=== PATIENT | female | born 1950 | race Caucasian/White ===

== ENCOUNTER → 2016-12-08 | Outpatient (CLI) | payer OTHER ==
[2016-12-08 13:47] LABS: BLOOD UREA NITROGEN 15 mg/dl (7-18); BUN/CREATININE RATIO 17.5 (10-20); CARBON DIOXIDE 29 mmol/L (21-32); CHLORIDE 110 mmol/L (98-107); CREATININE 0.88 mg/dl (0.60-1.20); GLUCOSE 99 mg/dl (70-99); POTASSIUM 4.3 mmol/L (3.5-5.1); SODIUM 144 mmol/L (136-145)
[2016-12-08 13:50] LABS: CHOLESTEROL 185 mg/dl (0-200); CHOLESTEROL/HDL RATIO 3.4; HDL CHOLESTEROL 55 mg/dl; LDL CHOLESTEROL CALCULATED 109 mg/dl; TRIGLYCERIDES 107 mg/dl (0-150); VERY LOW DENSITY LIPOPROT CALC 21 mg/dl
== END | disposition home or self-care (01) ==
LOC: C.LABPBG 09:33
PROVIDERS: ATTEND Physician Assistant
DX: Z00.00 Encounter for general adult medical examination without abnormal findings (principal); E78.5 Hyperlipidemia, unspecified

== ENCOUNTER → 2017-03-01 | Outpatient (CLI) | payer OTHER | END | disposition home or self-care (01) | LOC: C.PAPS 09:23 | PROVIDERS: ATTEND Physician Assistant | DX: Z00.00 Encounter for general adult medical examination without abnormal findings (principal) ==

== ENCOUNTER → 2017-03-01 | Outpatient (CLI) | payer OTHER ==
[2017-03-01 17:51] LABS: URINE APPEARANCE TURBID (CLEAR); URINE BILIRUBIN NEG (NEG); URINE COLOR DK YELLOW; URINE EPITHELIAL CELL AUTO >30 /lpf (0-5); URINE NITRITE NEG (NEG); URINE SPECIFIC GRAVITY 1.028 (1.000-1.030); UROBILINOGEN NEG (NEG); ZZUR CULT IF INDIC CLEAN CATCH NO
[2017-03-01 17:57] LABS: MANUAL MICROSCOPIC REQUIRED? NO; REVIEW REQ? YES
== END | disposition home or self-care (01) ==
LOC: C.LABSPEC 15:24
PROVIDERS: ATTEND Physician Assistant
DX: R39.9 Unspecified symptoms and signs involving the genitourinary system (principal); Z00.00 Encounter for general adult medical examination without abnormal findings

== ENCOUNTER → 2017-10-03 | Outpatient (CLI) | payer OTHER | END | disposition home or self-care (01) | LOC: C.LABPBG 13:54 | PROVIDERS: ATTEND Physician Assistant | DX: Z11.59 Encounter for screening for other viral diseases (principal) ==

== ENCOUNTER → 2017-10-31 | Outpatient (CLI) | payer OTHER ==
--- NOTE | 2017-10-31 13:00 | DIAGNOSTIC IMAGING REPORT ---
ABDOMEN NO IV/ORAL CONT (CT) HISTORY: 66 years-old Female R19.00 Palpable abdominal massR93.5 Abnormal ultrasound of abdom patient presents with an acute palpable mass of the abdomen COMPARISON: None available TECHNIQUE: Multiple axial CT images of the abdomen were obtained without contrast. A dose lowering technique was used consistent with the principals of ROXI. FINDINGS: Mild dependent subsegmental bibasilar atelectasis. Mild right hemidiaphragm elevation. No pneumatosis or pneumoperitoneum. Imaged inferior cardiac chambers are unremarkable. Trace pericardial effusion. Scattered calcifications are seen throughout the spleen and liver suggesting prior granulomatous disease. No intrahepatic biliary ductal dilation identified. Gallbladder appears surgically absent. Mild overlies pancreatic atrophy. Adrenal glands are within normal limits. Nonobstructing 4 mm calculus of the inferior pole left kidney. Bilateral renal sinus cysts, left greater than right. 11 mm low attenuating lesion of the inferior pole left kidney is not completely characterized on this noncontrast study however suggests renal cyst. No ureteral calculi or obstructive uropathy identified. Mild atherosclerosis and tortuosity of the abdominal aorta. No bulky adenopathy identified. There is no bowel obstruction or focal bowel wall thickening identified. No inflammatory changes of the abdomen. The appendix is not imaged. There is mild diastases recti without large abdominal wall hernia or focal abdominal wall mass lesions identified. The bones appear intact without suspicious bone lesions identified. Probable bone island of the left iliac wing, partially imaged measuring up to 4 mm. Severe facet arthropathy on the right at L5-S1. IMPRESSION: 1. No acute intra-abdominal abnormality identified. No mass of the abdomen identified to correlate with the area of palpable concern. 2. Mild diastases recti without large ventral abdominal wall hernia identified. 3. Left-sided nephrolithiasis without ureteral calculi or obstructive uropathy. 4. Prior granulomatous disease. 5. Additional findings as above. The above report was generated using voice recognition software. It may contain grammatical, syntax or spelling errors. Electronically signed by: Manan Shanks M.D. 10/31/2017 12:59 PM Dictated Date/Time: 10/31/2017 12:50 PM
== END | disposition home or self-care (01) ==
LOC: C.CTS 12:05
PROVIDERS: ATTEND Physician Assistant
DX: R19.00 Intra-abdominal and pelvic swelling, mass and lump, unspecified site (principal); R93.5 Abnormal findings on diagnostic imaging of other abdominal regions, including retroperitoneum; N20.0 Calculus of kidney; J84.10 Pulmonary fibrosis, unspecified

== ENCOUNTER → 2018-04-03 | Outpatient (CLI) | payer OTHER ==
[2018-04-03 13:21] LABS: ALBUMIN 3.9 gm/dl (3.4-5.0); ALKALINE PHOSPHATASE 75 U/L (45-117); ALT/SGPT 23 U/L (12-78); AST/SGOT 16 U/L (15-37); BLOOD UREA NITROGEN 12 mg/dl (7-18); CALCIUM 8.8 mg/dl (8.5-10.1); CARBON DIOXIDE 29 mmol/L (21-32); CHOLESTEROL 196 mg/dl (0-200); CREATININE 0.98 mg/dl (0.60-1.20); GLUCOSE 97 mg/dl (70-99); LDL CHOLESTEROL CALCULATED 119 mg/dl; POTASSIUM 4.3 mmol/L (3.5-5.1); SODIUM 139 mmol/L (136-145); TOTAL PROTEIN 7.7 gm/dl (6.4-8.2)
== END | disposition home or self-care (01) ==
LOC: C.LABPBG 09:33
PROVIDERS: ATTEND Physician Assistant
DX: Z00.00 Encounter for general adult medical examination without abnormal findings (principal); E78.5 Hyperlipidemia, unspecified

== ENCOUNTER 2019-12-20 01:29 | Observation (INO) ==
[2019-12-20 02:14] LABS: Basophils # (auto) 0.02 K/uL (0-0.2); Basophils % (auto) 0.3 %; Eosinophils # (auto) 0.11 K/uL (0-0.5); Eosinophils % (auto) 1.4 %; Hematocrit (blood only) 41.9 % (37-47); Hemoglobin 13.9 g/dL (12.0-16.0); Immature Granulocytes # (auto) 0.01 K/uL (0.00-0.02); Immature Granulocytes % (auto) 0.1 %; Lymphocytes # (auto) 1.96 K/uL (1.2-3.4); Lymphocytes % (auto) 25.5 %; Mean Corpuscular Hemoglobin 31.2 pg (25-34); Mean Corpuscular Hgb Conc 33.2 g/dL (32-36); Mean Corpuscular Volume 93.9 fL (80-100); Mean Platelet Volume 10.6 fL (7.4-10.4); Monocytes # (auto) 0.73 K/uL (0.11-0.59); Monocytes % (auto) 9.5 %; Neutrophils # (auto) 4.85 K/uL (1.4-6.5); Neutrophils % (auto) 63.2 %; Platelet Count 173 K/uL (130-400); RDW Standard Deviation 44.8 fL (36.4-46.3); Red Blood Count 4.46 M/uL (4.2-5.4); White Blood Count 7.68 K/uL (4.8-10.8)
[2019-12-20 02:24] LABS: Appearance Urine Clear (Clear); Bacteria Urine Automated Negative (Negative); Bilirubin Urine Negative (Negative); Blood Urine 3+ (Negative); Color Urine Yellow; Epithelial Cell Urine Auto >30 /lpf (0-5); Glucose Urine UA Negative (Negative); Ketones Urine Negative (Negative); Leukocyte Esterase Urine Trace (Negative); Nitrite Urine Negative (Negative); Protein Urine Negative (Negative); RBC Urine Automated >30 /hpf (0-4); Specific Gravity Urine 1.027 (1.000-1.030); Urobilinogen Urine Negative (Negative); pH Urine 5.5 (4.5-7.5)
[2019-12-20 02:34] LABS: Albumin Level 3.6 gm/dl (3.4-5.0); BUN Creatinine Ratio 18.3 (10-20); Creatinine Clr Calc Pharmacy 39.4 ml/min; Est GFR (African American) 46.3; Potassium 3.7 mmol/L (3.5-5.1)
[2019-12-20 02:36] LABS: Albumin Globulin Ratio 1.1 (0.9-2); Bilirubin,Total 0.6 mg/dl (0.2-1); Globulin 3.4 gm/dl (2.5-4.0)
[2019-12-20] MEDS ORDERED: KETOROLAC 30 MG/ML VIAL IV ONE (03:52)
[2019-12-20] MEDS ORDERED: ONDANSETRON INJ 2 MG/ML 2 ML VIAL IV STA (03:52)
[2019-12-20] MEDS ORDERED: SODIUM CHLORIDE 0.9% 1000ML 1,000 ML IV ONE (03:52)
--- NOTE | 2019-12-20 05:14 | History & Physical Report ---
Date of Service December 20, 2019 Assessment & Plan (1) Obstruction of left ureteropelvic junction due to stone: Patient is a 69-year-old female the past medical history of osteopenia, diverticulosis, impaired fasting glucose without diabetes or anti-glycemic oral agents, neuropathy of unknown cause, and hyperlipidemia who presents with 2 weeks of low mid abdominal pain similar to what she is experienced with prior episodes of kidney stones. L Obstructive nephrolithiasis with hydronephrosis CTabdomen shows 7 x 8 mm stone at the left uteropelvic junction with mild left-sided nephrosis Stone has not passed on its own over 2 weeks Patient endorses dysuria x2 weeks. UA with leukocyte esterase, no bonnie bacteria. 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 pending urology evaluation and need for cystoscopy. NSS 125 cc/h DVT prophylaxis: SCDs, hold pharmacotherapeutic agents pending evaluation for potential cystoscopy CODE STATUS: Full code Disposition: Med/surgical (2) Prediabetes: (3) Polyneuropathy: (4) Diverticulosis: (5) Osteoporosis: History of Present Illness Primary Care Provider: Samantha Thakkar DO Patient is a 69-year-old female the past medical history of osteopenia, diverticulosis, impaired fasting glucose without diabetes or anti-glycemic oral agents, neuropathy of unknown cause, and hyperlipidemia who presents with 2 weeks of low mid abdominal pain similar to what she is experienced with prior episodes of kidney stones. She reports that she has had kidney stones 2 or 3 times in the past, which felt similar except they were associated with back pain in the past worse her current episode has not had any back pain. She has not had any fever, chills, sweats, or recent illness. She endorses mid low abdominal pain which is worse and feels like a "intense pressure "when she tries to urinate. She has been urinating frequent small volumes with some burning while urinating. She does not feel like she has been able to empty her bladder completely. Her symptoms have slowly increased over the last 2 weeks. Her PCP had prescribed her a oral antibiotic for UTI 2 weeks ago, she is unsure of what the name of the medication was but notes that it did not improve her symptoms. She has not noticed any blood in her urine. Medical history: Reviewed as above Surgical history: Reviewed in EMR Medication allergies: No known allergies, reviewed in EMR Medications: Atorvastatin, gabapentin. Reviewed in EMR Social: She lives in [place] with her . She does not drink alcohol, use tobacco products, or use recreational drugs. Her surrogate decision maker would be her daughter Lorri. CODE STATUS: Full code discussed with patient. Allergies Allergy/AdvReac Type Severity Reaction Status Date / Time No Known Allergies Allergy Verified 12/20/19 02:04 Home Medications Home Medications Medication Instructions Recorded Confirmed Type gabapentin 300 mg capsule 300 mg PO TID #270 cap 11/18/19 12/20/19 Rx atorvastatin 40 mg tablet 40 mg PO DAILY #90 tab 12/03/19 12/20/19 Rx Past Med/Surg History Medical History Diverticulosis Dyslipidemia Osteoporosis Polyneuropathy Prediabetes Surgical History H/O total hysterectomy History of bladder surgery Bladder Tuck History of hand surgery R hand, removal of mass S/P cholecystectomy Status post breast lumpectomy R breast Family History Sister Colon cancer dx late 50s Brother Diabetes Hypertension Coronary heart disease Denies family history of Ovarian cancer Prostate cancer Myocardial infarction Breast cancer Social History Preferred Language: Divehi Communication Ability: Effective Visual Impairment: No Limitations 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 Beliefs That Will Affect Care: None marital status: Current Living Situation: Spouse current occupational status: retired Other Information That Helps Us Care for You: No Feels Safe at Home: Yes Safety Concerns: Feels Safe At This Time Smoking Status: Never smoker Hx Alcohol Use: No Hx Substance Use: No Dental Care, Regularly: No Physical Activity Frequency: Does not Exercise Seatbelt Use: sometimes Review of Systems Review of Systems: Constitutional: Denies fever, chills, malaise, weight change Eyes: Denies vision change ENT: Denies sore throat or cold-like symptoms Cardiovascular: Denies Chest pain, chest pressure, palpitations, extremity sw elling Respiratory: Denies shortness of breath, cough, sputum production, difficulty breathing Gastrointestinal: Abdominal pain as noted in HPI. Otherwise denies nausea, vomiting, constipation, diarrhea Genitourinary: As noted in HPI Musculoskeletal: Denies weakness, muscle aches/pain, joint aches/pain Integumentary:Denies rash, lesions, bruising Neurological: Denies headache, focal weakness. Endorses distal neuropathy in her feet bilaterally of unknown etiology, is pending neurology outpatient follow-up. Physical Exam Physical Exam: General: A&Ox3. NAD. Cooperative. HEENT: Atraumatic, normocephalic. Pupils equal and responsive to light and accommodation. Mucous membranes tacky. Pulm: CTAB A&P. -wheezes, -rales, -rhonchi. Symmetrical chest rise. No increase work of breathing. No respiratory distress. Cardiac: RRR, -mrg. Radial pulses intact and symmetrical. Abdominal: Focally tender in infraumbilical region to palpation. No rebound tenderness, nonrigid, no signs of acute abdomen. Nondistended, soft. BS present. No CVA tenderness. Extremities: Moving all extremities equally. Radial and PT pulses intact and symmetrical. Sensation intact in distal extremities bilaterally. . Results & Data Results & Data ([facility]) Vital Signs (Past 12 Hours) Vital Signs Temp Pulse Resp BP Pulse Ox 12/20/19 04:30 63 19 127/74 96 12/20/19 04:00 64 17 150/93 H 99 12/20/19 03:30 71 20 128/76 96 12/20/19 03:00 68 20 138/81 96 12/20/19 02:41 71 21 148/81 H 96 12/20/19 02:11 71 20 162/95 H 97 12/20/19 01:31 36.9 C 84 20 156/82 H 96 Supervising Physician Co-Signing Physician Notes Attending addendum: I have physically seen this patient, have supervised the medical residents activities, and agree with the H&P unless as otherwise noted. Assessment and Plan: 7 x 8 mm left UVJ obstructing stone/moderate left hydronephrosis- NPO IV fluids Ceftriaxone 1 g IV daily Zofran 4 mg IV every 6 hours PRN Famotidine 20 mg IV every 12 hours Follow urine culture and sensitivity Flomax 0.4 mg daily Toradol and morphine IV as needed pain control was noted. Consult urology. Remainder of orders and notations as noted. Resident Activity Tracking Resident Involvement: Resident Care Provided Care Provided: Adult [facility] Medicine
[2019-12-20] MEDS ORDERED: ACETAMINOPHEN 325 MG TAB PO PRN (05:45)
[2019-12-20] MEDS ORDERED: MoRPHine SULFATE 2 MG/ML CARP IV PRN ×2 (05:45→05:49)
--- NOTE | 2019-12-20 05:48 | Emergency Department Note ---
Impression & Plan Hydronephrosis with urinary obstruction due to ureteral calculus ED Provider Note NAME: MIN YOUSIF AGE: 69 SEX: F ARRIVES VIA: Walk-In INFORMANT: Patient ED PROVIDER(S): Crista Magaña DO CHIEF COMPLAINT: Lower abdominal pain PLAN: Disposition: Inpatient care by the [facility] MEDICAL DECISION MAKING: This is a 69-year-old female patient who presents to the emergency department with lower abdominal pain over the past 2 weeks that has not improved. The patient was unable to sleep tonight and symptoms seem to worsen as she attempted to go to the bathroom. On presentation to the emergency department, the patient went for CT scan of the abdomen/pelvis which showed a left-sided ureteral stone measuring 7 x 8 mm with moderate left-sided hydronephrosis. Patient received IV fluids, Zofran and Toradol. The patient has been having pain for 2 weeks and it was thought that she most likely would be unable to pass the stone on her own because of the size. I discussed the case with the [facility] and they will evaluate for further management. Triage Nursing notes reviewed and agree them. Vital Signs: reviewed and unremarkable Differential diagnosis: Obstructive uropathy; ureteral calculi; diverticulitis; diverticular abscess; pyelonephritis ER treatment provided: IV normal saline hydration; IV Zofran; IV Toradol Laboratory studies: See below Imaging studies:as per stat rad- CT abdomen and pelvis without contrast: There is moderate left hydronephrosis and hydroureter down to a 7 x 8 mm calculus at the left UVJ. The urinary bladder is decompressed. There is moderate to severe diverticulosis of the sigmoid colon. No acute inflammatory changes are seen involving the bowel. No dilated bowel loops are present. The appendix is normal HPI: 69/F arrives for evaluation of lower abdominal pain. This is a 69-year-old female patient who presents to the emergency department with a two- week history of diffuse lower abdominal pain. The patient has a history of previous kidney stones but states that the pain usually starts in her back. The patient describes this pain is diffuse in her lower abdomen. She was evaluated by her PCP who diagnosed her with a urinary tract infection and prescribed her an antibiotic which she took twice a day for 10 days and finished taking it approximately 4-5 days ago. The patient states that her pain seemed to worsen somewhat tonight to the point that she was unable to sleep. She states that it felt as if her insides were falling out of her when she tried to urinate. She denies any nausea or vomiting. She does describe some chills but does have a normal appetite. The patient declined wanting any pain medications upon my e valuation of her. ROS: See above HPI for pertinent positives & negatives. A total of 10 systems reviewed and were otherwise negative. PAST MEDICAL HISTORY:See Below PAST SURGICAL HISTORY:See Below FAMILY HISTORY:See Below SOCIAL HISTORY:See Below HOME MEDICATIONS:See list ALLERGIES:None VITALS:Stable PHYSICAL EXAMINATION: HEENT: Head - normocephalic and atraumatic Pupils are equal, round, and reactive to light. Extraocular eye muscles are intact, and sclera are anicteric. Nose - moist nasal mucosa without discharge. Mouth - moist buccal mucosa. Oropharynx is nonerythematous and there is no tonsillar exudate or edema noted. Neck: Supple; no JVD, nuchal rigidity, cervical lymphadenopathy, or auscultated bruits. Heart: Regular rate and rhythm. There is a normal S1 and S2 with no murmurs, clicks, or gallops appreciated. Lungs: Clear to auscultation bilaterally with no wheezes, rales, or rhonchi. Abdomen: Soft, diffusely tender with palpation. There is normal bowel sounds. There is no palpable hepatomegaly. There is no guarding, rigidity, or rebound noted. Extremities: No evidence of cyanosis, clubbing, or edema. There are easily palpable peripheral pulses. Skin: warm and dry with good turgor and no rashes. ED COURSE: Times/Reassessments: 0145: The patient was evaluated in room C9. A complete history and physical was performed. A urine specimen was collected. Laboratory studies were drawn as above. An IV lock was initiated and labs were drawn as above. The patient went for CT scan of the abdomen/pelvis. An order was written for a liter of normal saline solution, 4 mg of IV Zofran, and 30 mg of IV Toradol. I [facility] the case with [facility] and they will evaluate for further management. 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 Beliefs That Will Affect Care: None marital status: Current Living Situation: Spouse current occupational status: retired Other Information That Helps Us Care for You: No Feels Safe at Home: Yes Safety Concerns: Feels Safe At This Time Smoking Status: Never smoker Hx Alcohol Use: No Hx Substance Use: No Dental Care, Regularly: No Physical Activity Frequency: Does not Exercise Seatbelt Use: sometimes Allergies Allergies Allergy/AdvReac Type Severity Reaction Status Date / Time No Known Allergies Allergy Verified 12/20/19 02:04 Home Meds Previous Rx's Medication Instructions Recorded gabapentin 300 mg capsule 300 mg PO TID #270 cap 11/18/19 atorvastatin 40 mg tablet 40 mg PO DAILY #90 tab 12/03/19 Results & Data (ED) Vital Signs Vital Signs - 24 hr 12/20/19 01:31 12/20/19 02:05 12/20/19 02:11 Temperature 36.9 C Temperature Source Oral Pulse Rate 84 71 Pulse Rate from SpO2 Sensor 72 Respiratory Rate 20 20 Respiratory Effort / Characteristics Non-Labored Respiratory Depth Normal Blood Pressure 156/82 H 162/95 H Blood Pressure Mean 106 102 Pulse Oximetry 96 97 Oxygen Delivery Method Room Air Room Air Room Air Sepsis Recent Fever Within 48 Hours No Sepsis New/Unexplained Change in Mental Status No Sepsis Action Taken by Nursing No Action Required 12/20/19 02:41 12/20/19 03:00 12/20/19 03:30 Temperature Temperature Source Pulse Rate 71 68 71 Pulse Rate from SpO2 Sensor 69 69 68 Respiratory Rate 21 20 20 Respiratory Effort / Characteristics Respiratory Depth Blood Pressure 148/81 H 138/81 128/76 Blood Pressure Mean 92 94 98 Pulse Oximetry 96 96 96 Oxygen Delivery Method Room Air Room Air Sepsis Recent Fever Within 48 Hours Sepsis New/Unexplained Change in Mental Status Sepsis Action Taken by Nursing 12/20/19 04:00 12/20/19 04:30 12/20/19 05:00 Temperature Temperature Source Pulse Rate 64 63 66 Pulse Rate from SpO2 Sensor 65 64 66 Respiratory Rate 17 19 19 Respiratory Effort / Characteristics Respiratory Depth Blood Pressure 150/93 H 127/74 130/77 Blood Pressure Mean 105 95 91 Pulse Oximetry 99 96 96 Oxygen Delivery Method Room Air Room Air Sepsis Recent Fever Within 48 Hours Sepsis New/Unexplained Change in Mental Status Sepsis Action Taken by Nursing Laboratory Data Result diagrams: 12/20/19 02:00 12/20/19 02:00 Lab Results 12/20/19 12/20/19 12/20/19 Range/Units 02:00 02:00 02:05 WBC 7.68 (4.8-10.8) K/uL RBC 4.46 (4.2-5.4) M/uL Hgb 13.9 (12.0-16.0) g/dL Hct 41.9 (37-47) % MCV 93.9 (80-100) fL MCH 31.2 (25-34) pg MCHC 33.2 (32-36) g/dL RDW Std Deviation 44.8 (36.4-46.3) fL RDW Coeff of Lorie 13.0 (11.5-14.5) % Plt Count 173 (130-400) K/uL MPV 10.6 H (7.4-10.4) fL Immature Gran % (Auto) 0.1 % Neut % (Auto) 63.2 % Lymph % (Auto) 25.5 % Gem % (Auto) 9.5 % Eos % (Auto) 1.4 % Baso % (Auto) 0.3 % Immature Gran # (Auto) 0.01 (0.00-0.02) K/uL Neut # (Auto) 4.85 (1.4-6.5) K/uL Lymph # (Auto) 1.96 (1.2-3.4) K/uL Gem # (Auto) 0.73 H (0.11-0.59) K/uL Eos # (Auto) 0.11 (0-0.5) K/uL Baso # (Auto) 0.02 (0-0.2) K/uL Sodium 143 (136-145) mmol/L Potassium 3.7 (3.5-5.1) mmol/L Chloride 111 H (98-107) mmol/L Carbon Dioxide 27 (21-32) mmol/L Anion Gap 5.0 (3-11) BUN 25 H (7-18) mg/dl Creatinine 1.35 H (0.6-1.2) mg/dl Est Cr Clr Drug Dosing 39.4 ml/min Est GFR ( Amer) 46.3 Est GFR (Non-Af Amer) 40.0 BUN/Creatinine Ratio 18.3 (10-20) Glucose 103 H (70-99) mg/dl Calcium 9.0 (8.5-10.1) mg/dl Total Bilirubin 0.6 (0.2-1) mg/dl AST 21 (15-37) U/L ALT 21 (12-78) U/L Alkaline Phosphatase 65 (45-117) U/L Total Protein 7.0 (6.4-8.2) gm/dl Albumin 3.6 (3.4-5.0) gm/dl Globulin 3.4 (2.5-4.0) gm/dl Albumin/Globulin Ratio 1.1 (0.9-2) Lipase 115 (73-393) U/L Urine Color Yellow Urine Appearance Clear (Clear) Urine pH 5.5 (4.5-7.5) Ur Specific [place] 1.027 (1.000-1.030) Urine Protein Negative (Negative) Urine Glucose (UA) Negative (Negative) Urine Ketones Negative (Negative) Urine Blood 3+ H (Negative) Urine Nitrite Negative (Negative) Urine Bilirubin Negative (Negative) Urine Urobilinogen Negative (Negative) Ur Leukocyte Esterase Trace H (Negative) Urine WBC (Auto) 10-30 H (0-5) /hpf Urine RBC (Auto) >30 H (0-4) /hpf U Hyaline Cast (Auto) 5-10 H (0-5) /lpf U Epithel Cells (Auto) >30 H (0-5) /lpf Urine Bacteria (Auto) Negative (Negative) Administered Medications Ceftriaxone Sodium 2,000 mg/ (Dextrose) 70 mls @ 140 mls/hr IV Q24H [facility]; Protocol Stop: 12/22/19 05:59 Last Infusion: 12/20/19 06:46 Dose: 0 mls/hr Documented by: [id number] Admin: 12/20/19 06:13 Dose: 140 mls/hr Documented by: [id number] Sodium Chloride (Nss 1000ml) 1,000 mls @ 125 mls/hr IV .Q8H JANINE Stop: 01/19/20 05:44 Last Infusion: 12/20/19 06:46 Dose: 125 mls/hr Documented by: [id number] Infusion: 12/20/19 06:13 Dose: 0 mls/hr Documented by: [id number] Admin: 12/20/19 06:09 Dose: 125 mls/hr Documented by: [id number] Discontinued Medications Sodium Chloride (Nss 1000ml) 1,000 mls @ 999 mls/hr IV .Q1H1M ONE Stop: 12/20/19 04:52 Last Infusion: 12/20/19 05:27 Dose: 0 mls/hr Documented by: [id number] Admin: 12/20/19 04:01 Dose: 999 mls/hr Documented by: [id number] Ketorolac Tromethamine (Toradol) 30 mg IV NOW ONE Stop: 12/20/19 03:53 Last Admin: 12/20/19 04:01 Dose: 30 mg Documented by: [id number] Ondansetron HCl (Zofran) 4 mg IV NOW STA Stop: 12/20/19 03:53 Last Admin: 12/20/19 04:01 Dose: 4 mg Documented by: [id number] Discharge Plan Visit Data *Final* Discharge Date/Time: 12/20/19 05:36 Chief Complaint: Abdominal Pain Stated Complaint: STOMACH PAIN ED Provider: Crista Magaña Discharge Problem: Hydronephrosis with urinary obstruction due to ureteral calculus Patient Disposition: Admitted As Inpatient Discharge Instructions Interventions: ED Discharge Assessment Last Done: 12/20/19 05:36
[2019-12-20] MEDS: SODIUM CHLORIDE 0.9% 1000ML 1,000 ML IV SCH ×3 (06:09→22:29)
[2019-12-20] MEDS: cefTRIAXone SODIUM 2,000 MG in DEXTROSE 5% 50 ML IV SCH (06:13)
--- NOTE | 2019-12-20 08:00 | CT Scan Report ---
ABDOMEN AND PELVIS CT WITHOUT CONTRAST CT DOSE: 499.33 mGy.cm HISTORY: Lower abdominal pain. eval for ureteral stone vs. diverticulitis TECHNIQUE: Multiaxial CT images of the abdomen and pelvis were performed without contrast. A dose lo wering technique was utilized adhering to the principles of ALARA. COMPARISON STUDY: Abdomen and pelvis CT 04/19/2019. FINDINGS: The lung bases are clear. No pneumoperitoneum. No pneumatosis. Sacral Tarlov cysts are agai n noted. No suspicious lytic or blastic osseous lesions. Cholecystectomy. A few scattered punctate ca lcified granuloma seen within the liver and spleen. The unenhanced adrenal glands and pancreas are un remarkable. Right peripelvic renal cysts are again noted. The punctate stone within the left kidney. No right renal calculi. Moderate left hydroureteronephrosis secondary to an obstructing 7 mm stone wi thin the distal left ureter. This is immediately proximal to the left ureterovesical junction. The bl adder is decompressed. Prior hysterectomy. Extensive colonic diverticulosis. Suboptimal evaluation fo r bowel pathology due to the lack of intravenous and oral contrast. However, there is no definite bow el wall thickening or obstruction. No evidence for acute diverticulitis. Normal appendix. No retroper itoneal or pelvic lymphadenopathy. IMPRESSION: 1. A 7 mm obstructing stone within the distal left ureter resulting in moderate left hydroureteroneph rosis. 2. Left-sided nephrolithiasis. 3. Colonic diverticulosis. ACT 112: Negative or not required by law. Electronically signed by: Pierre Neri M.D. 12/20/2019 7:59 AM
[2019-12-20] MEDS: TAMSULOSIN HCL 0.4 MG CAP PO SCH (08:23)
[2019-12-20] MEDS: GABAPENTIN 300 MG CAP PO SCH ×3 (08:41→18:51)
[2019-12-20] MEDS ORDERED: ATORVASTATIN 40 MG TAB PO SCH ×2 (09:00→21:00)
[2019-12-20] MEDS ORDERED: KETOROLAC TROMETHAMINE 15 MG/ML VIAL IV PRN (12:00)
--- NOTE | 2019-12-20 16:32 | Anesthesiology Consultation ---
Date of Service December 20, 2019 Assessment & Plan (1) Encounter for pre-operative examination: Chart Review Chart Review: Acceptable Risk for Surgery Consults Requested none History Surgery Operation Date: 12/21/19 11:10 Proposed Procedures p Left Ureteroscopy, Laser Lithotripsy, Left Stent Placement - Dre Arnold DO Height/Weight Height: 5 ft 3 in Weight: 80.2 kg Allergies Allergy/AdvReac Type Severity Reaction Status Date / Time No Known Allergies Allergy Verified 12/20/19 02:04 Medications Home Medications Medication Instructions Recorded Confirmed Last Taken gabapentin 300 mg capsule 300 mg PO TID #270 cap 11/18/19 12/20/19 Unknown atorvastatin 40 mg tablet 40 mg PO DAILY #90 tab 12/03/19 12/20/19 Unknown Active Medications Generic Name Dose Route Start Last Admin Trade Name Freq PRN Reason Stop Dose Admin Gabapentin 300 mg 12/20/19 09:00 12/20/19 14:28 Neurontin PO 01/19/20 08:59 Not Given TID JANINE Ceftriaxone Sodium 2,000 mg/ 70 mls @ 140 mls/hr 12/20/19 06:00 12/20/19 06:46 Dextrose IV 12/22/19 05:59 Infused Q24H JANINE Infusion Protocol Sodium Chloride 1,000 mls @ 125 mls/hr 12/20/19 05:45 12/20/19 14:34 Nss 1000ml IV 01/19/20 05:44 125 mls/hr .Q8H JANINE Administration Tamsulosin HCl 0.4 mg 12/20/19 09:00 12/20/19 08:23 Flomax PO 01/19/20 08:59 0.4 mg QAM JANINE Administration Past Medical History Medical History Diverticulosis Dyslipidemia Osteoporosis Polyneuropathy Prediabetes Past Family History Family History Sister Colon cancer dx late 50s Brother Diabetes Hypertension Coronary heart disease Denies family history of Ovarian cancer Prostate cancer Myocardial infarction Breast cancer Past Surgical History Surgical History H/O total hysterectomy History of bladder surgery Bladder Tuck History of hand surgery R hand, removal of mass S/P cholecystectomy Status post breast lumpectomy R breast Social History Smoking Status: Never smoker Hx Alcohol Use: No Hx Substance Use: No Physical Exam Vital Signs Last Vital Signs Temp 36.6 C 12/20/19 15:23 Pulse 65 12/20/19 15:23 Resp 16 12/20/19 15:23 BP 108/67 12/20/19 15:23 Pulse Ox 94 12/20/19 15:23 Testing Laboratory Results 12/20/19 02:00 12/20/19 02:00 Urine Color Yellow 12/20/19 02:05 Urine Appearance Clear (Clear) 12/20/19 02:05 Urine pH 5.5 (4.5-7.5) 12/20/19 02:05 Ur Specific [place] 1.027 (1.000-1.030) 12/20/19 02:05 Urine Protein Negative (Negative) 12/20/19 02:05 Urine Glucose (UA) Negative (Negative) 12/20/19 02:05 Urine Ketones Negative (Negative) 12/20/19 02:05 Urine Nitrite Negative (Negative) 12/20/19 02:05 Ur Leukocyte Esterase Trace (Negative) H 12/20/19 02:05 Urine WBC (Auto) 10-30 /hpf (0-5) H 12/20/19 02:05 Urine RBC (Auto) >30 /hpf (0-4) H 12/20/19 02:05 U Hyaline Cast (Auto) 5-10 /lpf (0-5) H 12/20/19 02:05 U Epithel Cells (Auto) >30 /lpf (0-5) H 12/20/19 02:05 Urine Bacteria (Auto) Negative (Negative) 12/20/19 02:05 Electrocardiogram Date: 04/19/19 Findings: + NSR @ (80) nonspecific T wave abnormality
--- NOTE | 2019-12-20 18:50 | Communication Note ---
Date of Service: December 20, 2019 seen in f/u from early AM admission pain controlled no fever for procedure tomorrow continue current care
--- NOTE | 2019-12-21 04:23 | Billing Data ---
Date of Service December 21, 2019 Coding Level of Care Code 56501 Initial Inpt Care Lvl 2
[2019-12-21 05:09] LABS: Basophils # (auto) 0.01 K/uL (0-0.2); Basophils % (auto) 0.2 %; Eosinophils # (auto) 0.15 K/uL (0-0.5); Eosinophils % (auto) 3.3 %; Hematocrit (blood only) 36.4 % (37-47); Hemoglobin 11.9 g/dL (12.0-16.0); Immature Granulocytes # (auto) 0.01 K/uL (0.00-0.02); Immature Granulocytes % (auto) 0.2 %; Lymphocytes # (auto) 1.59 K/uL (1.2-3.4); Lymphocytes % (auto) 34.8 %; Mean Corpuscular Hemoglobin 31.3 pg (25-34); Mean Corpuscular Hgb Conc 32.7 g/dL (32-36); Mean Corpuscular Volume 95.8 fL (80-100); Mean Platelet Volume 10.6 fL (7.4-10.4); Monocytes # (auto) 0.32 K/uL (0.11-0.59); Neutrophils # (auto) 2.49 K/uL (1.4-6.5); Neutrophils % (auto) 54.5 %; Platelet Count 135 K/uL (130-400); RDW Coefficient of Variation 13.2 % (11.5-14.5); RDW Standard Deviation 46.2 fL (36.4-46.3); White Blood Count 4.57 K/uL (4.8-10.8)
[2019-12-21 05:43] LABS: BUN Creatinine Ratio 16.1 (10-20); Calcium 7.6 mg/dl (8.5-10.1); Est GFR (African American) 58.7; Est GFR (Non-African American) 50.6; Potassium 3.9 mmol/L (3.5-5.1)
[2019-12-21] MEDS: cefTRIAXone SODIUM 2,000 MG in DEXTROSE 5% 50 ML IV SCH (05:56)
[2019-12-21] MEDS: SODIUM CHLORIDE 0.9% 1000ML 1,000 ML IV SCH ×2 (05:56→14:45)
[2019-12-21] MEDS ORDERED: IOTHALAMATE MEGLUMINE II 17.2% 250 ML VIAL ONE (07:59)
[2019-12-21] MEDS ORDERED: PROPOFOL IV EMULSION 10 MG/ML 20 ML VIAL IV ONE (08:30)
[2019-12-21] MEDS ORDERED: LIDOCAINE HCL 2% 2 ML VIAL/AMP(20MG/ML) INFIL ONE (08:30)
[2019-12-21] MEDS ORDERED: MIDAZOLAM HCL 1 MG/ML 2ML VIAL ONE (08:30)
[2019-12-21] MEDS ORDERED: fentaNYL citrate 100 MCG/2 ML VIAL ONE (08:30)
[2019-12-21] MEDS ORDERED: ONDANSETRON INJ 2 MG/ML 2 ML VIAL ONE (08:30)
[2019-12-21] MEDS ORDERED: DEXAMETHASONE SOD INJ 4 MG/ML VIAL ONE (08:30)
[2019-12-21] MEDS ORDERED: fentaNYL citrate 100 MCG/2 ML VIAL IV PRN ×2 (08:55→08:59)
[2019-12-21] MEDS ORDERED: PROMETHAZINE HCL 12.5 MG in SODIUM CHLORIDE 0.9% 50 ML IV PRN (08:55)
[2019-12-21] MEDS ORDERED: ONDANSETRON INJ 2 MG/ML 2 ML VIAL IV PRN ×2 (08:55→08:59)
[2019-12-21] MEDS ORDERED: ATROPINE SULFATE 0.1 MG/ML 10ML SYR IV PRN ×2 (08:55→08:59)
[2019-12-21] MEDS ORDERED: ePHEDrine sulfate 50 MG/ML AMP IV PRN ×2 (08:55→08:59)
--- NOTE | 2019-12-21 08:59 | Urology Consultation ---
Date of Consultation December 21, 2019 Assessment & Plan (1) Hydronephrosis with urinary obstruction due to ureteral calculus: Risks and benefits discussed at length for procedure. These include bleeding, infection, injury to surrounding tissues or organs, and risks associated with anesthesia. Patient states understanding and agrees to proceed. Will sign consent and schedule. WIll plan for Left Ureteroscopy and laser lithotripsy. (2) Obstruction of left ureteropelvic junction due to stone: History of Present Illness Attending Physician: Yobany Waters DO History of Present Illness New consultation for patient with stone, discomfort, obstruction, and ill feelings. Patient developed sudden onset of pain into flank going down and radiating into groin and back in waves comes and goes. Can be severe at times. Discussed and reviewed patient's family history for any history of stone disease. Also, discussed patient's medical surgery history especially related to any history of urinary issues or stone disease. Patient was admitted and is undergoing observation. Allergies Allergy/AdvReac Type Severity Reaction Status Date / Time No Known Allergies Allergy Verified 12/20/19 02:04 Home Medications Home Medications Medication Instructions Recorded Confirmed Type gabapentin 300 mg capsule 300 mg PO TID #270 cap 11/18/19 12/20/19 Rx atorvastatin 40 mg tablet 40 mg PO DAILY #90 tab 12/03/19 12/20/19 Rx Patient History Medical History Diverticulosis Dyslipidemia Osteoporosis Polyneuropathy Prediabetes Surgical History H/O total hysterectomy History of bladder surgery Bladder Tuck History of hand surgery R hand, removal of mass S/P cholecystectomy Status post breast lumpectomy R breast Family History Sister Colon cancer dx late 50s Brother Diabetes Hypertension Coronary heart disease Denies family history of Ovarian cancer Prostate cancer Myocardial infarction Breast cancer Social History Preferred Language: Armenian Communication Ability: Effective Visual Impairment: No Limitations Hearing Ability: Normal Capital Campaign Fundraiser Required: No Beliefs That Will Affect Care: None marital status: Current Living Situation: Spouse current occupational status: retired Other Information That Helps Us Care for You: No Feels Safe at Home: Yes Safety Concerns: Feels Safe At This Time Smoking Status: Never smoker Hx Alcohol Use: No Hx Substance Use: No Dental Care, Regularly: No Physical Activity Frequency: Does not Exercise Seatbelt Use: sometimes Review of Systems Review of Systems: All systems reviewed & are unremarkable except as noted in HPI & below Physical Exam Physical Exam: General: Alert and oriented x 3 in no acute distress. Patient is well nourished and well kept. HEENT: Normocephalic Atraumatic. Inspection normal. Cranial Nerves 2-12 Grossly intact. Nares are clear. Neck is supple. Normal inspection of face. Normal inspection of neck. Neurologic: No deficits on inspection. Baseline for motor function and sensory. Psychologic: Normal affect. Respiratory: Nonlabored. No use of accessory muscles. No tachypnea or dyspnea. Cardiovascular: No tachycardia Skin: [place] and Dry. No rashes or visible lesions. Extremities: Moving without issues. No motor deficits on inspection Lymphatics: No edema Abdomen: Soft Non-distended. No acites. No rebound or guarding. Results & Data Vital Signs (Past 12 Hours) Vital Signs Temp Pulse Resp BP Pulse Ox 12/21/19 07:18 36.6 C 59 L 18 109/67 95 12/20/19 23:48 36.6 C 66 20 109/70 90 PG Care Time/CCT Total # of Minutes Spent Total Time Spent with Patient: Total time spent is greater than 50% in coordination of care (as documented) at patient's floor/unit and/or counseling patient: Coding Level of Care Code 55186 Initial Inpt Care Lvl 3 Diagnoses Hydronephrosis with urinary obstruction due to ureteral calculus N13.2 Obstruction of left ureteropelvic junction due to stone N20.1
[2019-12-21] MEDS ORDERED: PHENYLEPHRINE 100MCG/ML 5ML SYR ONE (09:46)
[2019-12-21] MEDS ORDERED: ePHEDrine sulfate 50 MG/ML SYR ONE (09:46)
--- NOTE | 2019-12-21 09:58 | Operative Report ---
PG Post Operative Report Pre & Post Diagnosis Operation Date: 12/21/19 11:10 Pre-Op Diagnosis: Hydronephrosis with urinary obstruction due to ureteral calculus Post-Op Diagnosis: Hydronephrosis with urinary obstruction due to ureteral calculus I identified the patient and participated in the time-out.: Yes Procedure Operation Date: 12/21/19 11:10 Actual Procedures p Cystoscopy with Left Ureteroscopy, Laser Lithotripsy, Stone basket extraction, retrograde pyelogram, Left Stent Placement(Left) - Dre Arnold DO Surgeon Dre Arnold, II, DO Reinforcing [employer] Placer None Estimated Blood Loss 1 Findings Consistent with Post-Op Diagnosis Stone destroyed to dust and small fragments and larger fragments removed. Specimens Stone Fragments Drains 6 Fr Multilength Anesthesia Type General Complications none Disposition Disposition: Recovery Room Indications Patient with bothersome stones. Risks and benefits discussed at length. Description of Procedure Patient was consented and brought back to the operating room. Patient was placed under anesthesia in the supine position and moved to the dorsal lithotomy position. Patient was prepped and draped in the regular sterile fashion. A time out was completed. A 30degree Cystoscope was placed into the bladder and the entire bladder was examined. The UO's were identified. The UO was cannulized with a catheter and a retrograde pyelogram was completed. A wire was then placed. The Rigid ureteroscope was taken into the ureter. The stone was identified. A laser fiber was selected and the stones were pulverized to dust and small fragments. Larger fragments were grasped and removed and sent for analysis. The entire area was once again examined. No residual large fragments or areas of concern were noted. The scope was slowly removed with the wire left in place. Contrast was placed through the scope for a pyelogram to assist in stent plac ement. The entire ureter was examined as the scope was slowly removed. No obstructions or other areas of concern were noted. With the wire in place, a 6 Fr Double J stent was placed. It was confirmed with fluoroscopy. With the stent in place, the bladder was emptied. The scope was removed. The patient was cleaned, aroused from anesthesia, and transferred to the pacu in stable condition having tolerated the procedure well with no complications. I was present and participated in all aspects of the procedure. The patient will be monitored in the PACU until transferred. I attest to the content of the Intraoperative Record and any orders documented therein. Any exceptions are noted below.
--- NOTE | 2019-12-21 10:23 | Fluoroscopy Report ---
FL retrograde includes kub CLINICAL HISTORY: Laser lithotripsy. Stent placement. COMPARISON STUDY: CT scan dated 12/20/2019 FLUOROSCOPY TIME: 24 seconds. NUMBER OF FLUOROSCOPIC IMAGES: 6 FINDINGS: 6 intraoperative fluoroscopic spot images reveal postsurgical changes of a left retrograde study. There is left-sided hydroureteronephrosis. The final images demonstrate placement of a double pigtail left sided ureteral stent. IMPRESSION: Intraoperative fluoroscopic spot images demonstrating left-sided hydroureteronephrosis a nd placement of a left-sided nephroureteral stent. ACT 112: Negative or not required by law. Electronically signed by: Rupert Brown M.D. 12/21/2019 10:22 AM
[2019-12-21] MEDS: TAMSULOSIN HCL 0.4 MG CAP PO SCH (11:13)
[2019-12-21] MEDS: GABAPENTIN 300 MG CAP PO SCH ×2 (11:13→13:49)
--- NOTE | 2019-12-21 12:41 | Anesthesiology Progress Note ---
Date of Service December 21, 2019 Anesthesia Post Procedure Vital Signs Vital Signs: Temp Pulse Pulse Pulse Resp BP Pulse Ox 12/21/19 12:12 36.9 C 66 16 121/72 94 12/21/19 11:47 36.4 C L 58 L 14 108/68 92 12/21/19 11:04 36.5 C 61 16 117/7 L 95 12/21/19 10:50 36.4 C L 68 17 122/64 98 12/21/19 10:40 60 14 118/65 99 12/21/19 10:30 68 17 118/67 97 12/21/19 10:20 68 20 114/62 98 12/21/19 10:10 36.3 C L 62 14 88/59 L 97 12/21/19 07:18 36.6 C 59 L 18 109/67 95 12/20/19 23:48 36.6 C 66 20 109/70 90 12/20/19 15:23 36.6 C 65 16 108/67 94 Transfer of Care Handoff Completed per policy Notes Mental Status: alert / awake / arousable and participated in evaluation Patient Amnestic to Procedure: Yes Nausea / Vomiting: adequately controlled Pain: adequately controlled Airway Patency, RR, SpO2: stable & adequate BP & HR: stable & adequate Hydration State: stable & adequate Anesthetic Complications: no major complications apparent and Pt Satisfied with anesthetic care
--- NOTE | 2019-12-21 16:10 | Discharge Summary ---
Date of Service December 21, 2019 Admission HPI Per Admitting Provider Patient is a 69-year-old female the past medical history of osteopenia, diverticulosis, impaired fasting glucose without diabetes or anti-glycemic oral agents, neuropathy of unknown cause, and hyperlipidemia who presents with 2 weeks of low mid abdominal pain similar to what she is experienced with prior episodes of kidney stones. She reports that she has had kidney stones 2 or 3 times in the past, which felt similar except they were associated with back pain in the past worse her current episode has not had any back pain. She has not had any fever, chills, sweats, or recent illness. She endorses mid low abdominal pain which is worse and feels like a "intense pressure "when she tries to urinate. She has been urinating frequent small volumes with some burning while urinating. She does not feel like she has been able to empty her bladder completely. Her symptoms have slowly increased over the last 2 weeks. Her PCP had prescribed her a oral antibiotic for UTI 2 weeks ago, she is unsure of what the name of the medication was but notes that it did not improve her symptoms. She has not noticed any blood in her urine. Medical history: Reviewed as above Surgical history: Reviewed in EMR Medication allergies: No known allergies, reviewed in EMR Medications: Atorvastatin, gabapentin. Reviewed in EMR Social: She lives in [place] with her . She does not drink alcohol, use tobacco products, or use recreational drugs. Her surrogate decision maker would be her daughter Lorri. CODE STATUS: Full code discussed with patient. Principal Diagnosis ureterolithiasis Discharge Exam [facility] [place] [facility] [facility] breathing unlabored no accessory muscles good effort skin no rashes no pallor or icterus neuro no focal deficits Discharge Data Allergies Allergy/AdvReac Type Severity Reaction Status Date / Time No Known Allergies Allergy Verified 12/20/19 02:04 Consultations 12/20/19 03:52 ED Decision to Admit Stat 12/20/19 05:45 Consult Urology Routine Procedures Performed Operation Date: 12/21/19 11:10 Actual Procedures p Left Ureteroscopy, Laser Lithotripsy, Left Stent Placement(Left) - Dre Arnold, DO Ordered Studies 12/20/19 02:20 CT abd pelvis wo con Urgent 12/21/19 14:15 FL retrograde includes kub Routine Hospital Course (1) Obstruction of left ureteropelvic junction due to stone: admitted with intractable pain / ureterolithiasis -- cysto/lithotripsy today - doing better/ pain improved / stable for home -finish short course of abx w cefdinir -outpt urology f/u -oxycodone prn pain, zofran prn nausea (2) Prediabetes: (3) Polyneuropathy: (4) Diverticulosis: (5) Osteoporosis: Total Time Total Time Spent Total Time Spent (In Minutes): <30 Discharge Plan Discharge Items Patient Disposition: Home - Self-Care Reason For Visit: L HYDRO, UPJ STONE Discharge Diagnosis: kidney stone Activity: Resume your previous activity Non-emergency contact: Primary Care Provider and Urologist Call non-emergency contact if: you have any medication questions, your symptoms worsen and your temperature is above 101 Follow-up/Referrals: Samantha Thakkar DO [Primary Care Provider] - Diet: Regular Addtl Attending Provider Instructions: you can use the oxycodone up to every 6 hours as needed for pain - caution drowsiness or constipation you can use the ondansetron up to every 6 hours as needed for nausea finish out the antibiotic (cefdinir) for 3 more days (6 more doses) starting with tomorrow morning's dose (12/22/19) expect a call from the urology office to set up your follow up Stand-Alone Forms: My [facility], Opioid Pain Management, Smoking Cessation Medications and DC Order Prescriptions: New oxycodone-acetaminophen [Percocet] 5-325 mg tablet 1 tab PO Q6H PRN (Reason: pain) Qty: 10 RF: 0 ondansetron 4 mg tablet,disintegrating 4 mg PO Q6H PRN (Reason: nausea and vomiting) Qty: 10 RF: 0 cefdinir 300 mg capsule 300 mg PO BID Qty: 6 RF: 0 Continued gabapentin 300 mg capsule 300 mg PO TID Qty: 270 RF: 1 atorvastatin 40 mg tablet 40 mg PO DAILY Qty: 90 RF: 1 Discharge Orders: Discharge Order (Routine); Ordered 12/21/19 Ordered By: Yobany Nair/Other Patient Handouts: DVT Post Op Prevention Admission Data Admit Date/Time: 12/20/19 05:07 Attending Provider: Yobany Waters Admit Provider: Suhas Webber Primary Care Provider: Samantha Thakkar Other Providers: Suhas Webber ; Dre Arnold Other Interventions: Discharge Summary Assessment (RN) Last Done: 12/21/19 14:27 DC Date/Time DO NOT enter until pt leaves facility: 12/21/19 15:56 Coding Level of Care Code D/C Day Management <30 mins Diagnoses Obstruction of left ureteropelvic junction due to stone N20.1 Prediabetes R73.03 Polyneuropathy G62.9 Diverticulosis K57.90 Osteoporosis M81.0
[2019-12-27 11:14] LABS: Calculus Nidus Not Observed; Component 2 DNR; Source LEFT URETERAL STONE
== END 2019-12-21 15:56 | disposition home or self-care (01) ==
LOC: ED 01:29 → INTOOBSV 05:07 → 3E 05:07 → SUATTDRO 05:07 → 3E 05:36